=== PATIENT | female | born 1995 | race Caucasian/White ===

== ENCOUNTER 2020-03-08 12:49 | Observation (INO) | payer SELFPAY ==
[~2020-03-08] VITALS: Ht 160 cm; Wt 59.1 kg
[2020-03-08 13:39] LABS: COLLECTION METHOD CLEAN CATCH
[2020-03-08 13:43] LABS: BASO % 0.4 % (0.0-2.0); EOS % 0.3 % (0-4.0); GRAN # 8.1 (1.4-6.5); GRAN % 78.6 % (42.2-75.2); HEMATOCRIT 41.1 % (37.0-47.0); HEMOGLOBIN 13.6 g/dl (12.5-16.0); LYMPH # 1.4 (1.2-3.4); LYMPH % 13.2 % (20.0-51.0); MEAN CELL VOLUME 90 fl (80.0-100.0); MEAN CORPUSCULAR HEMOGLOBIN 30 pg (27.0-31.0); MEAN CORPUSCULAR HGB CONC 33 g/dl (33.0-37.0); MEAN PLATELET VOLUME 9.4 fl (7.4-10.4); MONO # 0.8 (0.1-0.6); MONO % 7.2 % (1.7-9.3); PLATELET COUNT 210 K/mm3 (130-400); RED BLOOD COUNT 4.58 M/mm3 (4.10-5.30); REDCELL DISTRIBUTION WIDTH-CV 13.2 % (11.5-14.5)
[2020-03-08 13:55] LABS: ALANINE AMINOTRANSFERASE 31 U/L (4-34); ALBUMIN 4.4 gm/dL (3.5-5.0); ALKALINE PHOSPHATASE 83 U/L (50-136); ANION GAP 8 mmol/L (7-16); AST,SGOT 22 U/L (15-37); BILIRUBIN,TOTAL 0.6 mg/dL (0.0-1.0); BLOOD UREA NITROGEN 12 mg/dL (7-17); CALCIUM 9.2 mg/dL (8.4-10.2); CARBON DIOXIDE 27 mmol/L (22-30); CHLORIDE 99 mmol/L (98-107); CREATININE, serum 0.57 (0.52-1.25); GLUCOSE 110 mg/dL (74-106); LIPASE 32 U/L (23-300); POTASSIUM 3.8 mmol/L (3.4-5.0); SODIUM 135 mmol/L (137-145); TOTAL PROTEIN 7.7 gm/dL (6.4-8.2)
[2020-03-08 13:58] LABS: C-REACTIVE PROTEIN < 0.5 mg/dL (0.0-0.9)
[2020-03-08 14:07] LABS: MUCOUS Present /lpf; PH 5 (5-8); SQUAMOUS EPITHELIAL 0-2 /hpf; URINE APPEARANCE Clear; URINE BACTERIA None Seen /hpf; URINE BILIRUBIN Negative (NEGATIVE); URINE BLOOD Negative (NEGATIVE); URINE COLOR Yellow; URINE GLUCOSE Negative (NEGATIVE); URINE KETONE Negative (NEGATIVE); URINE LEUKOCYTE ESTERASE Negative (NEGATIVE); URINE NITRATE Negative (NEGATIVE); URINE PROTEIN(semi-quant) Negative (NEGATIVE); URINE RBC 0-2 /hpf; URINE UROBILINOGEN Negative (NEGATIVE)
[2020-03-08] MEDS ORDERED: SINGULAIR 110 MG/TAB PO (16:21)
[2020-03-08 16:48] VITALS: BP 102/61; PULSE 75
--- NOTE | 2020-03-08 17:00 | NUR ---
Pt here from ER via wheelchair to room 222. Pt having abd pain for the past 2 days with nasusea and diarrhea. Pt evaluated and blood was noted in pelvis after CT. Physician states possible ruptured cyst. Vital signs are stable and pt alert and oriented. States her pain is under control at this time and is much better. Assessment complete. Pt statse having a history of cysts in the past. 174:Dr Lima called and notified of pt vital signs and pt pt watching TV and calm. Pt to stay NPO but may have ice chips and sips of water. Repeat CBC to be drawn soon and will call physician back with results to discuss plan of care. 1745:Pt up to bathroom, voids.
[2020-03-08 17:24] VITALS: BP 109/66; PULSE 86; TEMP 98.4
[2020-03-08 18:22] LABS: HEMATOCRIT 39.4 % (37.0-47.0); HEMOGLOBIN 12.8 g/dl (12.5-16.0); MEAN CELL VOLUME 90 fl (80.0-100.0); MEAN CORPUSCULAR HEMOGLOBIN 29 pg (27.0-31.0); MEAN CORPUSCULAR HGB CONC 33 g/dl (33.0-37.0); MEAN PLATELET VOLUME 9.7 fl (7.4-10.4); PLATELET COUNT 199 K/mm3 (130-400); RED BLOOD COUNT 4.37 M/mm3 (4.10-5.30); REDCELL DISTRIBUTION WIDTH-CV 13.1 % (11.5-14.5)
[2020-03-08 19:45] VITALS: BP 101/67; PULSE 78; TEMP 97.7
[2020-03-08 23:57] VITALS: BP 97/59; PULSE 68; TEMP 98.4
[2020-03-09 04:45] VITALS: BP 91/53; PULSE 71; TEMP 98.1
[2020-03-09 06:28] LABS: BASO % 0.4 % (0.0-2.0); EOS # 0.1 (0.0-0.7); GRAN % 57.6 % (42.2-75.2); HEMOGLOBIN 11.4 g/dl (12.5-16.0); LYMPH # 2.2 (1.2-3.4); LYMPH % 31.3 % (20.0-51.0); MEAN CELL VOLUME 90 fl (80.0-100.0); MEAN CORPUSCULAR HEMOGLOBIN 30 pg (27.0-31.0); MEAN CORPUSCULAR HGB CONC 33 g/dl (33.0-37.0); MEAN PLATELET VOLUME 9.4 fl (7.4-10.4); MONO # 0.7 (0.1-0.6); MONO % 9.6 % (1.7-9.3); PLATELET COUNT 176 K/mm3 (130-400); RED BLOOD COUNT 3.83 M/mm3 (4.10-5.30); REDCELL DISTRIBUTION WIDTH-CV 13.4 % (11.5-14.5)
[2020-03-09 06:30] LABS: HEMATOCRIT 34.4 % (37.0-47.0)
[2020-03-09 07:00] VITALS: BP 98/52; PULSE 69; TEMP 97.6
--- NOTE | 2020-03-09 07:36 | NUR ---
0700 PT CALLED OUT COMPLAINING OF NAUSEA. PT STATED SHE JUST WOKE UP A LITTLE BIT AGO. PT HAS NOT EATEN ANYTHING SINCE LAST NIGHT. PT HAD PERCOCET AT 0449 THIS AM. IV ZOFRAN GIVEN BY THIS RN. PT REQUESTED SOME JUICE AND KIRBY CRACKERS WHILE WAITING ON BREAKFAST. PT STATES PAIN IS UNDER CONTROL. DENIES BLOOD IN URINE WHEN VOIDING. IVF INFUSING. WILL CONTINUE TO MONITOR.
[2020-03-09] MEDS ORDERED: PERCOCET 325 MG1 TA2 PO (08:23)
--- NOTE | 2020-03-09 08:51 | NUR ---
DISCHARGE INSTRUCTIONS GIVEN AT THIS TIME. PERCOCET PERSCRIPTION GIVEN TO PATIENT. ALL QUESTIONS ANSWERED AT THIS TIME. FOLLOW UP APPOINTMENT FOR 2 WEEKS MADE FOR [facility] ON MARCH 24, 2020 AT 1:40PM.
== END 2020-03-09 09:20 | disposition home or self-care (01) ==
LOC: COL.ER 12:49 → OB 15:39
PROVIDERS: Emergency Medicine; ADMIT Obstetrics & Gynecology
DX: N83.10 Corpus luteum cyst of ovary, unspecified side (principal); K66.1 Hemoperitoneum; K21.9 Gastro-esophageal reflux disease without esophagitis; Z90.49 Acquired absence of other specified parts of digestive tract; Z88.1 Allergy status to other antibiotic agents
CPT/HCPCS: G0378; J2405; J3010; J7030; Q9967

== ENCOUNTER 2020-03-12 00:16 | Emergency (ER) | payer SELFPAY ==
[~2020-03-12] VITALS: Ht 160 cm; Wt 59.1 kg
[~2020-03-12 00:16] MED LIST: PERCOCET 325 MG1 TA2 PO; SINGULAIR 110 MG/TAB PO
[2020-03-12 00:22] VITALS: BP 114/73; TEMP 98.1
[2020-03-12] MEDS ORDERED: FLONASEALLERGY NS (00:37)
[2020-03-12] MEDS ORDERED: ZOFRAN 4MG T4 MG/TAB PO (01:06)
[2020-03-12 01:43] VITALS: PULSE 72
== END 2020-03-12 01:50 | disposition home or self-care (01) ==
LOC: COL.ER 00:16
DX: G44.209 Tension-type headache, unspecified, not intractable (principal); T40.2X5A Adverse effect of other opioids, initial encounter; Z87.42 Personal history of other diseases of the female genital tract

== ENCOUNTER 2020-05-22 18:27 | Emergency (ER) | payer BC ==
[~2020-05-22] VITALS: Ht 160 cm; Wt 59.1 kg
[~2020-05-22 18:27] MED LIST changes: +FLONASEALLERGY NS; +ZOFRAN 4MG T4 MG/TAB PO
[2020-05-22 18:43] VITALS: BP 112/75; TEMP 99
[2020-05-22] MEDS ORDERED: AMOXICILLIN 8751 TAB PO (19:01)
[2020-05-22] MEDS ORDERED: DIFLUCAN150 MG PO (19:02)
[2020-05-22 20:53] VITALS: PULSE 88
[2020-05-25] MEDS ORDERED: DOXYCYCLINE 10100 MG PO (17:42)
== END 2020-05-22 20:53 | disposition home or self-care (01) ==
LOC: COL.ER 18:27
DX: H60.11 Cellulitis of right external ear (principal)

== ENCOUNTER → 2021-08-30 | Outpatient (CLI) | payer BC ==
[~2021-08-30] MED LIST changes: +AMOXICILLIN 8751 TAB PO; +DIFLUCAN150 MG PO; +DOXYCYCLINE 10100 MG PO
== END ==
LOC: MC.RAD 06:53
DX: N64.59 Other signs and symptoms in breast (principal)

== ENCOUNTER 2022-12-08 13:45 | Emergency (ER) | payer BC ==
[~2022-12-08] VITALS: Ht 157.5 cm; Wt 63.6 kg
[2022-12-08 13:57] VITALS: BP 132/81; PULSE 86; TEMP 98.4
[2022-12-08 15:22] LABS: BASO % 0.7 % (0.0-2.0); EOS % 0.7 % (0.0-4.0); GRAN # 3.1 K/mm3 (1.4-6.5); HEMATOCRIT 39.2 % (37.0-47.0); HEMOGLOBIN 13.2 g/dl (12.5-16.0); LYMPH % 34.8 % (20.0-51.0); MEAN CELL VOLUME 89 fl (80.0-100.0); MEAN CORPUSCULAR HEMOGLOBIN 30 pg (27-31); MEAN CORPUSCULAR HGB CONC 34 g/dl (33.0-37.0); MEAN PLATELET VOLUME 9.1 fl (7.4-10.4); MONO # 0.6 K/mm3 (0.1-0.6); MONO % 9.6 % (1.7-9.3); PLATELET COUNT 227 K/mm3 (130-400); RED BLOOD COUNT 4.43 M/mm3 (4.10-5.30); REDCELL DISTRIBUTION WIDTH-CV 12.9 % (11.5-14.5)
[2022-12-08 15:42] LABS: ALBUMIN 3.8 gm/dL (3.5-5.0); BILIRUBIN,TOTAL 0.5 mg/dL (0.2-1.2); CALCIUM 8.9 mg/dL (8.4-10.2); CREATININE, serum 0.76 mg/dL (0.57-1.11); POTASSIUM 3.3 mmol/L (3.5-4.5)
== END 2022-12-08 18:17 | disposition home or self-care (01) ==
LOC: COL.ER 13:45
PROVIDERS: Personal Emergency Response Attendant
DX: R10.9 Unspecified abdominal pain (principal); E87.6 Hypokalemia; Z87.19 Personal history of other diseases of the digestive system; Z90.49 Acquired absence of other specified parts of digestive tract; Z28.310 Unvaccinated for COVID-19
CPT/HCPCS: J2270; J2405; J7030; Q9967

== ENCOUNTER 2022-12-21 09:34 | Day surgery (SDC) | payer BC ==
[~2022-12-21] VITALS: Ht 157.5 cm; Wt 62.8 kg
[2022-12-21] MEDS ORDERED: JUNEL FE 1.5/301 TAB PO (09:52)
[2022-12-21] MEDS ORDERED: PROTONIX20 MG PO (09:53)
[2022-12-21 09:54] VITALS: BP 113/76; PULSE 83; TEMP 97.9
--- NOTE | 2022-12-21 10:05 | NUR ---
PT SWABBED FOR MRSA AND SENT TO LAB
[2022-12-21 11:05] VITALS: BP 92/79; PULSE 77; TEMP 98.2
[2022-12-21 11:20] VITALS: BP 110/74; PULSE 66
[2022-12-21 11:35] VITALS: BP 100/70; PULSE 76
[2022-12-21 11:50] VITALS: BP 109/74; PULSE 63
[2022-12-21 12:05] VITALS: BP 114/75; PULSE 71
--- NOTE | 2022-12-21 12:08 | NUR ---
1105- PT RETURNS TO [facility] VIA CART. AWAKE AND ALERT. RESPIRATIONS UNLABORED. AMBULATES TO RECLINER CHAIR WITH 2:1 SBA. DENIES NAUSEA OR ABDOMINAL PAIN. PT HOOKED UP TO MONITOR AND VS OBTAINED. CALL LIGHT AT SIDE AND SPOUSE AT SIDE. 1110- PT TOLERATES WATER WITHOUT NAUSEA OR DIFFICULTY SWALLOWING. 1140- PT TOLERATES MUFFIN WITHOUT NAUSEA. 1145- D/C INSTRUCTIONS REVIEWED. PATIENT VERBALIZES UNDERSTANDING. COPY PROVIDED IN D/C FOLDER. 1203- PT. DRESSES SELF. 1208- PT. LEFT UNIT VIA W/C. PT. TRANSFERED TO PERSONAL VEHICLE WITHOUT DIFFIUCLTY. PT. LEFT HOSPITAL IN STABLE CONDITION. 1155- DR. PEÑA IN ROOM SPEAKING TO PATIENT.
== END 2022-12-21 12:08 | disposition home or self-care (01) ==
LOC: SDCO 09:34
DX: K29.50 Unspecified chronic gastritis without bleeding (principal); K21.00 Gastro-esophageal reflux disease with esophagitis, without bleeding
CPT/HCPCS: J2704; J3010; J7120